=== PATIENT | male | born 1965 | race Caucasian/White ===

== ENCOUNTER 2019-06-26 14:40 | Emergency (ER) | payer MEDICARE ==
[~2019-06-26] VITALS: Ht 188 cm; Wt 90.0 kg
[2019-06-26] MEDS ORDERED: BACTRIM DS1 TAB PO (15:22)
[2019-06-26 15:26] VITALS: BP 136/94
== END 2019-06-26 15:35 | disposition home or self-care (01) ==
LOC: ED 14:40
DX: L03.211 Cellulitis of face (principal); L02.01 Cutaneous abscess of face; F17.210 Nicotine dependence, cigarettes, uncomplicated

== ENCOUNTER 2021-01-04 18:15 | Emergency (ER) | payer MEDICARE, MEDICAID ==
[~2021-01-04 18:15] MED LIST: BACTRIM DS1 TAB PO
[2021-01-04 18:40] LABS: HEMATOCRIT 43.2 % (39.0-50.0); HEMOGLOBIN 15.4 g/dl (14.0-18.0); IMMATURE GRANULOCYTES 0.2 % (0.0-5.0); MEAN CELL VOLUME 104.3 fL CALC (80.0-100.0); MEAN CORPUSCULAR HGB 37.2 pG CALC (26.0-32.0); MEAN CORPUSCULAR HGB CONC 35.6 g/dL CAL (32.0-36.0); NEUT# 3.37 thou/uL (1.82-7.42); RED BLOOD COUNT 4.14 mill/uL (4.70-6.10); RED CELL DISTRI WIDTH 12.9 % (11.5-15.5)
[2021-01-04 19:00] LABS: ALBUMIN 4.3 g/dL (3.2-5.0); AMYLASE 60 u/l (30-110); BUN 3 mg/dL (9-20); BUN/CREATININE RATIO 4 (12-20 (CALC)); CARBON DIOXIDE 22 mmol/l (22-30); CHLORIDE 93 mmol/l (95-108); CREATININE 0.8 mg/dL (0.7-1.3); GFR > 60 ML/MIN (>=60 (CALC)); GFR FOR AFR.AMER. > 60 ML/MIN (>=60 (CALC)); LIPASE 88 u/l (23-300); POTASSIUM 3.9 mmol/l (3.5-5.1)
[2021-01-04 19:06] LABS: ALKALINE PHOSPHATASE 151 u/l (38-126); ANION GAP 15 (6-22 (CALC)); BILIRUBIN, TOTAL 1.7 mg/dL (0.0-1.4); SGOT/AST 247 u/l (17-59); SODIUM 126 mmol/l (137-146)
[2021-01-04 19:41] LABS: URINE BILIRUBIN - DIPSTICK NEGATIVE (NEGATIVE); URINE BLOOD DIPSTICK NEGATIVE (NEGATIVE); URINE COLOR YELLOW; URINE GLUCOSE - DIPSTICK NEGATIVE (NEGATIVE); URINE KETONE NEGATIVE (NEGATIVE); URINE LEUK ESTERASE NEGATIVE (NEGATIVE); URINE PROTEIN - DIPSTICK NEGATIVE (NEG-TRACE); URINE UROBILINOGEN - DIPSTICK 0.2 E.U./dL (0.2)
[2021-01-04 19:42] LABS: URINE NITRITE - DIPSTICK NEGATIVE (Negative)
[2021-01-04] MEDS ORDERED: ONDANSETRON4 MG PO (22:46)
[2021-01-04] MEDS ORDERED: CARAFATE PO (22:46)
[2021-01-04] MEDS ORDERED: PREVACID30 M3 PO (22:46)
[2021-01-04 23:42] VITALS: BP 159/87
== END 2021-01-04 23:42 | disposition home or self-care (01) ==
LOC: ED 18:15
PROVIDERS: Emergency Medicine
DX: K29.70 Gastritis, unspecified, without bleeding (principal); K70.10 Alcoholic hepatitis without ascites; F10.10 Alcohol abuse, uncomplicated; F17.200 Nicotine dependence, unspecified, uncomplicated; R07.89 Other chest pain
CPT/HCPCS: Q9967

== ENCOUNTER 2023-02-23 14:21 | Emergency (ER) | payer MEDICARE ==
[~2023-02-23] VITALS: Ht 188 cm; Wt 86.0 kg
[~2023-02-23 14:21] MED LIST changes: +CARAFATE PO; +ONDANSETRON4 MG PO; +PREVACID30 M3 PO
[2023-02-23 15:46] VITALS: BP 125/84
[2023-02-23 16:01] VITALS: BP 125/64
[2023-02-23 16:16] VITALS: BP 61/47
[2023-02-23 16:30] VITALS: BP 117/80
[2023-02-23] MEDS ORDERED: KEFLEX500 MG PO (16:38)
[2023-02-23] MEDS ORDERED: BACTRIM DS1 TAB PO (16:38)
[2023-02-23 17:10] VITALS: BP 117/80
== END 2023-02-23 17:23 | disposition home or self-care (01) ==
LOC: ED 14:21
DX: L02.215 Cutaneous abscess of perineum (principal); L98.9 Disorder of the skin and subcutaneous tissue, unspecified; K08.89 Other specified disorders of teeth and supporting structures; F17.200 Nicotine dependence, unspecified, uncomplicated

== ENCOUNTER 2024-05-14 18:03 | Emergency (ER) | payer MEDICARE ==
[~2024-05-14] VITALS: Ht 188 cm; Wt 95.0 kg
[~2024-05-14 18:03] MED LIST changes: +KEFLEX500 MG PO; +MEDDOSEPAK PO; +METHOCARBAMOL500 MG PO; +NAPROXEN500 MG PO; +ORPHENADRINE100 MG PO
[2024-05-14] MEDS ORDERED: PROMETHAZINE HCL 25 MG/ML AMP IV ONE (18:50)
[2024-05-14] MEDS ORDERED: SODIUM CHLORIDE 0.9% 1,000 ML IV ONE (18:50)
[2024-05-14] MEDS ORDERED: MORPHINE SULFATE 4 MG/ML VIAL IV ONE (18:50)
[2024-05-14] MEDS ORDERED: KETOROLAC TROMETHAMINE 30 MG/ML SDV IV ONE (18:50)
[2024-05-14 20:52] LABS: BASO% 0.5 % (0-3); EOS% 0.5 % (0-8); HEMATOCRIT 46.8 % (39.0-50.0); HEMOGLOBIN 16.5 g/dl (14.0-18.0); IMMATURE GRANULOCYTES 0.2 % (0.0-5.0); LYMPH% 19.1 % (15-41); MEAN CORPUSCULAR HGB 36.7 pG CALC (26.0-32.0); MEAN CORPUSCULAR HGB CONC 35.3 g/dL CAL (32.0-36.0); MONO% 5.3 % (2-13); NEUT# 7.68 thou/uL (1.82-7.42); NEUT% 74.4 % (42-76); RED BLOOD COUNT 4.5 mill/uL (4.70-6.10); RED CELL DISTRI WIDTH 13.2 % (11.5-15.5)
[2024-05-14 21:11] LABS: ALBUMIN 4.1 g/dL (3.2-5.0); CPK 51 u/l (55-170); CREATININE 0.6 mg/dL (0.7-1.3); POTASSIUM 3.5 mmol/l (3.5-5.1)
[2024-05-14 21:12] LABS: BILIRUBIN, TOTAL 0.7 mg/dL (0.2-1.3)
[2024-05-15] MEDS ORDERED: SODIUM CHLORIDE 0.9% 1,000 ML IV ONE (00:55)
[2024-05-15 02:45] LABS: URINE BILIRUBIN - DIPSTICK Negative (NEGATIVE); URINE BLOOD DIPSTICK Negative (NEGATIVE); URINE GLUCOSE - DIPSTICK Negative (NEGATIVE); URINE KETONE Negative (NEGATIVE); URINE LEUK ESTERASE Negative (NEGATIVE); URINE NITRITE - DIPSTICK Negative (Negative); URINE PH 7.5 (4.5-8.0); URINE PROTEIN - DIPSTICK Negative (NEG-TRACE); URINE UROBILINOGEN - DIPSTICK 0.2 E.U./dL (0.2)
[2024-05-15 03:00] LABS: URINE COLOR Yellow
[2024-05-15] MEDS ORDERED: DICYCLOMINE HCL20 MG PO (03:19)
[2024-05-15 08:10] VITALS: BP 140/70
== END 2024-05-15 08:10 | disposition home or self-care (01) ==
LOC: ED 18:03
PROVIDERS: Family Medicine; Internal Medicine
DX: K82.8 Other specified diseases of gallbladder (principal); F17.200 Nicotine dependence, unspecified, uncomplicated; F10.20 Alcohol dependence, uncomplicated; Y90.1 Blood alcohol level of 20-39 mg/100 ml
CPT/HCPCS: Q9967

== ENCOUNTER 2024-12-07 09:06 | Emergency (ER) | payer MEDICARE ==
[2024-12-07] VITALS (35 sets, daily range): BP systolic 125–179; BP diastolic 63–95
[~2024-12-07] VITALS: Ht 188 cm; Wt 80.0 kg
[~2024-12-07 09:06] MED LIST changes: +DICYCLOMINE HCL20 MG PO
[2024-12-07] MEDS ORDERED: ONDANSETRON HCl 4 MG/2 ML SDV IV STA (09:24)
[2024-12-07] MEDS ORDERED: KETOROLAC TROMETHAMINE 15 MG/ML SDV IV STA (09:24)
[2024-12-07 09:51] LABS: BASO% 0.4 % (0-3); EOS% 0.2 % (0-8); HEMATOCRIT 48.5 % (39.0-50.0); HEMOGLOBIN 16.9 g/dl (14.0-18.0); LYMPH% 12.8 % (15-41); MEAN CELL VOLUME 100.2 fL CALC (80.0-100.0); MEAN CORPUSCULAR HGB 34.9 pG CALC (26.0-32.0); MEAN CORPUSCULAR HGB CONC 34.8 g/dL CAL (32.0-36.0); MONO% 3.8 % (2-13); NEUT# 10.18 thou/uL (1.82-7.42); NEUT% 81.8 % (42-76); RED BLOOD COUNT 4.84 mill/uL (4.70-6.10); RED CELL DISTRI WIDTH 12.2 % (11.5-15.5)
[2024-12-07 10:10] LABS: ALBUMIN 4.4 g/dL (3.2-5.0); ALKALINE PHOSPHATASE 81 u/l (38-126); ANION GAP 11 (6-22 (CALC)); BILIRUBIN, TOTAL 0.7 mg/dL (0.2-1.3); BUN 9 mg/dL (9-20); BUN/CREATININE RATIO 11 (12-20 (CALC)); CARBON DIOXIDE 24 mmol/l (22-30); CHLORIDE 105 mmol/l (95-108); CREATININE 0.8 mg/dL (0.7-1.3); ESTIMATED GFR 102 ML/MIN (>=90 (CALC)); LIPASE 42 u/l (23-300); POTASSIUM 3.5 mmol/l (3.5-5.1); SGOT/AST 25 u/l (17-59); SODIUM 136 mmol/l (137-146); TOTAL PROTEIN 7.7 g/dL (6.3-8.2)
[2024-12-07 12:07] LABS: URINE BILIRUBIN - DIPSTICK Negative (NEGATIVE); URINE BLOOD DIPSTICK Trace-intact (NEGATIVE); URINE GLUCOSE - DIPSTICK Negative (NEGATIVE); URINE KETONE Negative (NEGATIVE); URINE LEUK ESTERASE Negative (NEGATIVE); URINE NITRITE - DIPSTICK Negative (Negative); URINE PH 7.5 (4.5-8.0); URINE PROTEIN - DIPSTICK Negative (NEG-TRACE); URINE UROBILINOGEN - DIPSTICK 0.2 E.U./dL (0.2)
[2024-12-07 12:09] LABS: URINE COLOR Yellow
[2024-12-07] MEDS ORDERED: DIATRIZOATE MEGLUMINE & SODIUM 30 ML/BTL PO ONE (12:30)
[2024-12-07] MEDS ORDERED: MORPHINE SULFATE 4 MG/ML VIAL IV ONE ×2 (12:35→13:55)
[2024-12-07] MEDS ORDERED: PIPERACILLIN Sodium-Tazobactam 3.375 GM in SODIUM CHLORIDE 0.9% 100 ML IV ONE (13:55)
== END 2024-12-07 18:28 | disposition short-term general hospital (02) ==
LOC: ED 09:06
PROVIDERS: Family Medicine
DX: K80.50 Calculus of bile duct without cholangitis or cholecystitis without obstruction (principal); F17.210 Nicotine dependence, cigarettes, uncomplicated
CPT/HCPCS: J1885; J2405; J2543; Q9967